=== PATIENT | female | born 2000 | race Caucasian/White ===

== ENCOUNTER 2021-07-20 11:26 | Inpatient (IN) ==
[2021-07-20 10:27] LABS: Bilirubin,Urine Negative (Negative); Clarity,Urine Hazy (Clear); Color,Urine Yellow (Yellow); Glucose,Urine (UA) Normal (Normal); Ketones,Urine Negative (Negative)
[2021-07-20 10:28] LABS: Blood,Urine Negative (Negative); Leukocyte Esterase,Urine Small (Negative); Nitrite,Urine Negative (Negative); PH,Urine 6.5 pH Units (5.0-8.0); Protein,Urine 200 mg/dL (Neg-Trace); Specific Gravity,Urine 1.029 (1.010-1.025); Urobilinogen,Urine Normal (Normal)
[2021-07-20 10:30] LABS: Bacteria,Urine Few per hpf (None-Few); RBC,Urine 0-3 per hpf (0-3); Squamous Epithelial Cell,Urine Few per hpf (None-Few); WBC,Urine 0-3 per hpf (0-3)
[~2021-07-20 11:26] MED LIST: *HR* Nalbuphine 10 MG/ML AMPUL IV PRN; Azithromycin 500 MG in 0.9 % Sodium Chloride 250 ML IVPB PRN; Famotidine 20 MG/2 ML VIAL IVP PRN; Metoclopramide 10 MG/2 ML VIAL IVP PRN; Naloxone 0.4 MG/ML INJ IVP PRN; Ondansetron 4 MG/2 ML VIAL IVP PRN; Penicillin G Potassium 5,000,000 UNIT in 0.9 % Sodium Chloride Mini Bag 100 ML IVPB ONE
[2021-07-20 11:28] LABS: Basophils % 0.2 %; Eosinophils # 0.4 K/mcL (0.0-0.6); Eosinophils % 2.7 %; Hematocrit 35.7 % (35.3-44.9); Immature Granulocytes % 0.7 % (0-4); Lymphocytes # 2.4 K/mcL (0.6-4.6); Mean Corpuscular HGB Conc 33.6 g/dL (31.6-35.5); Mean Corpuscular Hemoglobin 29.6 pg (28.0-33.3); Mean Corpuscular Volume 88.1 fL (83.0-100.0); Monocytes % 6.4 %; Neutrophils # 11.1 K/mcL (1.6-8.9); Platelet Count 219 K/mcL (140-400); Red Blood Count 4.05 M/mcL (3.82-4.97); Red Cell Distribution Width 14.1 % (11.5-14.5)
[2021-07-20 11:37] LABS: Amphetamine Screen,Urine Negative ng/mL (Cutoff=1000); Barbiturate Screen,Urine Negative ng/mL (Cutoff=200); Benzodiazepines Screen,Urine Negative ng/mL (Cutoff=200); Cannabinoid Screen,Urine Negative ng/mL (Cutoff = 50); Cocaine Screen,Urine Negative ng/mL (Cutoff= 300); Opiate Screen,Urine Negative ng/mL (Cutoff=300); Phencyclidine Screen,Urine Negative ng/mL (Cutoff=25)
[2021-07-20] MEDS ORDERED: miSOPROStoL 25 MCG TABLET PO STA (11:45)
[2021-07-20 11:47] LABS: Alanine Aminotransferase 11 Units/L (7-52); Aspartate Amino Transferase 16 Units/L (13-39); BUN/Creatinine Ratio 16 (6-26); Blood Urea Nitrogen 12 mg/dL (6-20); Lactate Dehydrogenase 192 Units/L (140-271); Uric Acid 7.4 mg/dL (2.3-7.6); eGFR For African Americans > 60; eGFR For Non-African Americans > 60
[2021-07-20 12:03] LABS: Influenza A PCR Negative (Negative); Influenza B PCR Negative (Negative); Resp. Syncytial Virus PCR Negative (Negative); SARS-CoV-2 by PCR (In House) Negative (Negative)
[2021-07-20 12:35] LABS: Protein/Creatinine Ratio,Urine 0.68 mg/mg (0.00-0.20)
[2021-07-20] MEDS ORDERED: Oxytocin 20 units/ LR 1000 mL 20 UNIT/1,000 ML BAG IVC SCH (15:45)
[2021-07-20] MEDS: Ringers Solution, Lactated 1,000 ML IVC SCH ×2 (16:40→20:25)
[2021-07-20] MEDS: Penicillin G Potassium 2,500,000 UNIT/105 ML MLS IVPB SCH ×2 (16:44→20:25)
[2021-07-20] MEDS ORDERED: Ropivacaine/PF 0.2% 20 ML VIAL ONE (18:09)
[2021-07-20] MEDS ORDERED: *HR* FentaNYL (PF) 250 MCG/5 ML VIAL ONE (18:09)
[2021-07-20] MEDS: Epidural Premix (fent/bupiv) 110 ML EP ONE (20:24)
[2021-07-21] MEDS: Penicillin G Potassium 2,500,000 UNIT/105 ML MLS IVPB SCH ×3 (00:54→13:41)
[2021-07-21] MEDS ORDERED: Epidural Premix (fent/bupiv) 110 ML EP ONE (03:08)
[2021-07-21] MEDS: Epidural Premix (fent/bupiv) 110 ML EP ONE (03:10)
[2021-07-21] MEDS ORDERED: EPHEDrine 50 MG/ML VIAL IVP PRN (07:20)
[2021-07-21] MEDS ORDERED: Epidural Premix (fent/bupiv) 110 ML EP SCH (07:30)
[2021-07-21] MEDS ORDERED: CeFAZolin 2,000 MG/120 ML BAG IVPB ONE (19:09)
[2021-07-21] MEDS ORDERED: Chloroprocaine/PF 20 ML VIAL INFILT ONE ×2 (19:22→19:50)
[2021-07-21] MEDS ORDERED: Acetaminophen IV 1,000 MG/100 ML BAG IVPB ONE (19:22)
[2021-07-21] MEDS ORDERED: Ondansetron 4 MG/2 ML VIAL ONE (19:22)
[2021-07-21] MEDS ORDERED: Lidocaine/EPI 1:200k 2% PF 20 ML VIAL ONE (19:49)
[2021-07-21] MEDS ORDERED: *HR* Morphine Sulfate/PF 10 MG/10 ML AMPUL ONE (19:59)
[2021-07-21] MEDS ORDERED: Ketorolac 30 MG/ML VIAL ONE (20:03)
[2021-07-21] MEDS ORDERED: *HR* OxyCODONE Immed Rel 5 MG TABLET PO PRN (20:56)
[2021-07-21] MEDS ORDERED: *HR* HYDROmorphone PF 0.5 MG/0.5 ML SYRINGE IVP PRN (20:56)
[2021-07-21] MEDS ORDERED: Promethazine 6.25 MG in Water for inj. (sterile) 20 ML IVPB PRN (20:56)
[2021-07-21] MEDS ORDERED: Simethicone 80 MG TAB.CHEW PO PRN (23:16)
[2021-07-21] MEDS ORDERED: Ondansetron 4 MG/2 ML VIAL IVP PRN (23:16)
[2021-07-22] MEDS: cephALEXin 500 MG CAPSULE PO SCH ×4 (00:56→21:41)
[2021-07-22] MEDS: Ibuprofen 600 MG TABLET PO SCH ×4 (00:56→18:34)
[2021-07-22] MEDS: Oxytocin 20 units/ LR 1000 mL 20 UNIT/1,000 ML BAG IVC SCH ×2 (00:57→06:01)
[2021-07-22 05:10] LABS: Mean Corpuscular Volume 89.1 fL (83.0-100.0); Mean Platelet Volume 12.2 fL (9.4-12.4); Red Cell Distribution Width 14.3 % (11.5-14.5)
[2021-07-22 05:12] LABS: Basophils % 0.1 %; Hematocrit 35.3 % (35.3-44.9); Hemoglobin 11.5 g/dL (11.5-15.4); Lymphocytes # 1.2 K/mcL (0.6-4.6); Lymphocytes % 4.5 %; Mean Corpuscular HGB Conc 32.6 g/dL (31.6-35.5); Monocytes # 1.1 K/mcL (0.0-1.3); Neutrophils # 23.8 K/mcL (1.6-8.9); Platelet Count 187 K/mcL (140-400); Red Blood Count 3.96 M/mcL (3.82-4.97); Segmented Neutrophils % 90.4 %; White Blood Count 26.3 K/mcL (4.3-11.1)
[2021-07-22 05:26] LABS: Alanine Aminotransferase 11 Units/L (7-52); Aspartate Amino Transferase 19 Units/L (13-39); BUN/Creatinine Ratio 20 (6-26); Blood Urea Nitrogen 13 mg/dL (6-20); Glucose 149 mg/dL (70-105); Lactate Dehydrogenase 234 Units/L (140-271); Uric Acid 8.3 mg/dL (2.3-7.6); eGFR For African Americans > 60; eGFR For Non-African Americans > 60
[2021-07-22] MEDS: Acetaminophen 325 MG TABLET PO SCH ×3 (06:00→18:34)
[2021-07-22 06:21] LABS: Protein/Creatinine Ratio,Urine 2.08 mg/mg (0.00-0.20)
[2021-07-22] MEDS: Prenatal Vit/FA 1 EACH TABLET PO SCH (08:05)
[2021-07-22] MEDS: *HR* OxyCODONE Immed Rel 5 MG TABLET PO PRN ×4 (08:11→21:42)
[2021-07-23] MEDS: Ibuprofen 600 MG TABLET PO SCH ×2 (00:55→10:20)
[2021-07-23] MEDS: Acetaminophen 325 MG TABLET PO SCH ×2 (00:55→10:20)
[2021-07-23 05:56] LABS: Basophils % 0.2 %; Eosinophils # 0.1 K/mcL (0.0-0.6); Eosinophils % 0.6 %; Hematocrit 31.8 % (35.3-44.9); Hemoglobin 10.2 g/dL (11.5-15.4); Mean Corpuscular HGB Conc 32.1 g/dL (31.6-35.5); Mean Corpuscular Hemoglobin 29.3 pg (28.0-33.3); Mean Corpuscular Volume 91.4 fL (83.0-100.0); Mean Platelet Volume 11.8 fL (9.4-12.4); Monocytes # 1.1 K/mcL (0.0-1.3); Monocytes % 5.9 %; Neutrophils # 14.4 K/mcL (1.6-8.9); Platelet Count 207 K/mcL (140-400); Red Blood Count 3.48 M/mcL (3.82-4.97); Segmented Neutrophils % 76.3 %; White Blood Count 18.9 K/mcL (4.3-11.1)
[2021-07-23 06:11] LABS: Alanine Aminotransferase 9 Units/L (7-52); Aspartate Amino Transferase 14 Units/L (13-39); BUN/Creatinine Ratio 21 (6-26); Blood Urea Nitrogen 14 mg/dL (6-20); Lactate Dehydrogenase 172 Units/L (140-271); Uric Acid 7.6 mg/dL (2.3-7.6); eGFR For African Americans > 60; eGFR For Non-African Americans > 60
[2021-07-23 08:01] VITALS: BP 122/75; PULSE 86; TEMP 97.8; O2SAT 97
[2021-07-23] MEDS: Prenatal Vit/FA 1 EACH TABLET PO SCH (10:20)
[2021-07-23] MEDS: cephALEXin 500 MG CAPSULE PO SCH (10:20)
== END 2021-07-23 12:49 | disposition home or self-care (01) | DRG 540 ==
LOC: 1NENULAB → 1NENUOBS 07-21 22:39
PROVIDERS: ADMIT Registered Nurse; ATTEND Registered Nurse

== ENCOUNTER 2022-09-07 05:45 | Inpatient (IN) ==
[2022-09-07] MEDS ORDERED: Ringers Solution, Lactated 2,000 ML ONE (06:21)
[2022-09-07] MEDS ORDERED: Ondansetron 4 MG/2 ML VIAL IVP PRN ×2 (07:17→11:51)
[2022-09-07] MEDS ORDERED: Naloxone 0.4 MG/ML INJ IVP PRN (07:17)
[2022-09-07] MEDS ORDERED: Famotidine 20 MG/2 ML VIAL IVP PRN (07:17)
[2022-09-07] MEDS ORDERED: CeFAZolin 2,000 MG/120 ML BAG IVPB ONE (07:17)
[2022-09-07] MEDS ORDERED: Metoclopramide 10 MG/2 ML VIAL IVP PRN ×2 (07:17→11:51)
[2022-09-07] MEDS ORDERED: Metoclopramide 10 MG/2 ML VIAL IVP ONE (07:17)
[2022-09-07] MEDS ORDERED: Famotidine 20 MG/2 ML VIAL IVP ONE (07:17)
[2022-09-07] MEDS ORDERED: Ringers Solution, Lactated 1,000 ML IVC SCH (07:30)
[2022-09-07] MEDS ORDERED: Oxytocin 30 UNIT/503 ML BAG IVC ONE (07:38)
[2022-09-07] MEDS ORDERED: Ondansetron 4 MG/2 ML VIAL ONE (07:51)
[2022-09-07] MEDS ORDERED: Acetaminophen IV 1,000 MG/100 ML BAG IVPB ONE (07:51)
[2022-09-07] MEDS ORDERED: *HR* FentaNYL (PF) 100 MCG/2 ML VIAL ONE (07:53)
[2022-09-07] MEDS ORDERED: *HR* Morphine Sulfate/PF 10 MG/10 ML AMPUL ONE (07:53)
[2022-09-07 07:54] LABS: Basophils % 0.2 %; Eosinophils # 0.3 K/mcL (0.0-0.6); Eosinophils % 2.2 %; Hematocrit 37.8 % (35.3-44.9); Hemoglobin 12.4 g/dL (11.5-15.4); Immature Granulocytes % 0.6 % (0-4); Lymphocytes # 2.7 K/mcL (0.6-4.6); Lymphocytes % 21.7 %; Mean Corpuscular HGB Conc 32.8 g/dL (31.6-35.5); Mean Corpuscular Hemoglobin 28.2 pg (28.0-33.3); Mean Corpuscular Volume 85.9 fL (83.0-100.0); Mean Platelet Volume 10.9 fL (9.4-12.4); Monocytes # 0.8 K/mcL (0.0-1.3); Monocytes % 6.5 %; Neutrophils # 8.5 K/mcL (1.6-8.9); Platelet Count 261 K/mcL (140-400); Red Cell Distribution Width 14.1 % (11.5-14.5); Segmented Neutrophils % 68.8 %; White Blood Count 12.4 K/mcL (4.3-11.1)
[2022-09-07] MEDS ORDERED: EPHEDrine sulfate 50 MG/10 ML VIAL IVP ONE (08:23)
[2022-09-07] MEDS ORDERED: Ketorolac 30 MG/ML VIAL ONE (09:05)
[2022-09-07 10:46] LABS: Amphetamine Screen,Urine Negative ng/mL (Cutoff=1000); Barbiturate Screen,Urine Negative ng/mL (Cutoff=200); Benzodiazepines Screen,Urine Negative ng/mL (Cutoff=200); Cannabinoid Screen,Urine Negative ng/mL (Cutoff = 50); Cocaine Screen,Urine Negative ng/mL (Cutoff= 300); Opiate Screen,Urine Negative ng/mL (Cutoff=300); Phencyclidine Screen,Urine Negative ng/mL (Cutoff=25)
[2022-09-07] MEDS ORDERED: Oxytocin 30 UNIT/503 ML BAG IVC SCH (11:51)
[2022-09-07] MEDS ORDERED: NON-FORMULARY MEDICATION 1 EACH EACH (Prenatal Vit/Fa [Prenatal Vit/Fa] 1 EACH Tablet) PO SCH (11:51)
[2022-09-07] MEDS ORDERED: Simethicone 80 MG TAB.CHEW PO PRN (11:51)
[2022-09-07] MEDS ORDERED: Ibuprofen 600 MG TABLET PO SCH (11:58)
[2022-09-07] MEDS: Prenatal Vit/FA 1 EACH TABLET PO SCH (12:21)
[2022-09-07] MEDS: metroNIDAZOLE 500 MG TABLET PO SCH ×3 (12:21→19:49)
[2022-09-07] MEDS: Acetaminophen 325 MG TABLET PO SCH ×3 (12:22→19:50)
[2022-09-07] MEDS: Ibuprofen 600 MG TABLET PO SCH ×2 (14:19→19:50)
[2022-09-07] MEDS ORDERED: Acetaminophen 325 MG TABLET PO SCH (15:00)
[2022-09-07] MEDS: CeFAZolin 2,000 MG/120 ML BAG IVPB SCH ×2 (15:10→23:55)
[2022-09-07] MEDS: *HR* OxyCODONE Immed Rel 5 MG TABLET PO PRN (22:29)
[2022-09-08] MEDS: Ibuprofen 600 MG TABLET PO SCH ×4 (02:00→21:35)
[2022-09-08] MEDS: Acetaminophen 325 MG TABLET PO SCH ×4 (02:01→21:35)
[2022-09-08 04:33] LABS: Basophils % 0.3 %; Eosinophils # 0.3 K/mcL (0.0-0.6); Eosinophils % 2.3 %; Hematocrit 32.9 % (35.3-44.9); Immature Granulocytes % 0.5 % (0-4); Lymphocytes # 2.6 K/mcL (0.6-4.6); Lymphocytes % 19.4 %; Mean Corpuscular HGB Conc 32.2 g/dL (31.6-35.5); Mean Platelet Volume 10.6 fL (9.4-12.4); Monocytes # 0.8 K/mcL (0.0-1.3); Monocytes % 6.3 %; Neutrophils # 9.4 K/mcL (1.6-8.9); Platelet Count 254 K/mcL (140-400); Red Blood Count 3.78 M/mcL (3.82-4.97); Red Cell Distribution Width 14.3 % (11.5-14.5); Segmented Neutrophils % 71.2 %; White Blood Count 13.2 K/mcL (4.3-11.1)
[2022-09-08] MEDS: *HR* OxyCODONE Immed Rel 5 MG TABLET PO PRN ×2 (04:40→11:28)
[2022-09-08 04:44] LABS: Hemoglobin 10.6 g/dL (11.5-15.4)
[2022-09-08] MEDS: CeFAZolin 2,000 MG/120 ML BAG IVPB SCH (07:44)
[2022-09-08] MEDS: Prenatal Vit/FA 1 EACH TABLET PO SCH (08:21)
[2022-09-08] MEDS: metroNIDAZOLE 500 MG TABLET PO SCH ×3 (08:21→21:36)
[2022-09-09] MEDS: Ibuprofen 600 MG TABLET PO SCH ×2 (04:32→10:32)
[2022-09-09] MEDS: Acetaminophen 325 MG TABLET PO SCH ×2 (04:33→10:32)
[2022-09-09 06:37] VITALS: BP 112/75; PULSE 89; TEMP 98.1; O2SAT 96
[2022-09-09] MEDS: Prenatal Vit/FA 1 EACH TABLET PO SCH (08:51)
== END 2022-09-09 14:32 | disposition home or self-care (01) | DRG 540 ==
LOC: 1NENULAB 05:47 → 1NENUOBS 11:43
PROVIDERS: ADMIT Obstetrics & Gynecology; ATTEND Obstetrics & Gynecology